=== PATIENT | female | born 1995 | race Caucasian/White ===

== ENCOUNTER 2023-03-14 12:54 | Emergency (ER) | payer OTHER, SELFPAY ==
[2023-03-14] MEDS ORDERED: Metoclopramide HCl 10 MG/2 ML VIAL ONE (15:57)
[2023-03-14 16:06] LABS: BHCG - Serum POSITIVE (NEGATIVE)
[2023-03-14 16:07] LABS: Pregs Control Background? CLEAR/WHITE (CLR/WHITE); Pregs Control Bar Appear? YES (CONTROL BAR)
[2023-03-14 16:10] LABS: #Eosinphils 0.1 10x3/uL (0.0-0.5); #Monocytes 0.3 10x3/uL (0.0-1.1); #Neutrophils 7.8 10x3/uL (1.5-8.4); %Basophils 0.3 % (0.0-2.0); %Eosinophils 0.6 % (0.0-6.0); %Lymphocytes 19.5 % (18.0-47.0); %Monocytes 3.1 % (0.0-10.0); %Neutrophils 76.2 % (40.0-75.0); Hematocrit 37.8 % (34.9-44.5); Hemoglobin 13.5 g/dL (12.0-15.5); Mean Corpuscular HGB CONC 35.7 g/dL (32.0-36.0); Mean Corpuscular Hemoglobin 30.6 pg (27.0-33.0); Mean Corpuscular Volume 85.7 fl (81.6-98.3); Mean Platelet Volume 9.5 fl (7.4-10.4); Platelet Count 172 10x3/uL (150-450); RBC Distribution Width 11.9 % (11.5-14.5); Red Blood Cell (RBC) Count 4.41 10x6/uL (3.90-5.03); White Blood Cell (WBC) Count 10.2 10x3/uL (3.5-10.5)
[2023-03-14 16:18] LABS: ALT (SGPT) 17 U/L (8-55); AST (SGOT) 15 U/L (5-34); Albumin 4.4 g/dL (3.5-5.0); Alkaline Phosphatase 46 U/L (40-110); Anion Gap 14 mmol/L (10-20); BUN (Urea Nitrogen) 8 mg/dL (7.0-18.7); Bilirubin, Total 0.6 mg/dL (0.2-1.2); Calc. Creatinine Clearance 0 mL/min (70-130); Carbon Dioxide 20 mmol/L (22-29); Chloride 103 mmol/L (98-107); Estimated GFR 124; Glucose 131 mg/dL (70-105); Potassium 3.4 mmol/L (3.5-5.1); Protein, Total 7.4 g/dL (6.0-8.3); Sodium 134 mmol/L (136-145)
[2023-03-14] MEDS ORDERED: diphenhydrAMINE 50 MG/ML VIAL ONE (16:28)
== END 2023-03-14 16:57 | disposition home or self-care (01) ==
LOC: CSHERS 12:54
DX: R11.2 Nausea with vomiting, unspecified (principal)
CPT/HCPCS: 36415; 80053; 84703; 85025; 96361; 96374; 96375; J1200; J2765

== ENCOUNTER 2023-10-06 03:06 | Day surgery (SDC) | payer OTHER ==
[2023-10-06 03:29] VITALS: BMI 30.2
[2023-10-06] MEDS ORDERED: hydrALAZINE 20 MG/ML VIAL SLOW IVP PRN (03:45)
[2023-10-06] MEDS ORDERED: Lactated Ringer's 1,000 ML IV SCH (04:00)
[2023-10-06] MEDS: Acetaminophen 500 MG TAB PO PRN (06:19)
[2023-10-06 07:46] LABS: Bilirubin Neg (Negative); Blood, Urine Negative (Negative); Clarity Clear (Clear); Glucose, Urine (Dipstick) Normal (Negative); Ketone, Urine Negative (Negative); Leukocyte Negative (Negative); Nitrite Negative (Negative); Protein, Urine (Dipstick) 15 mg/dl (Neg-Trace)
[2023-10-06 08:06] LABS: Bacteria/HPF Rare-Few HPF (None Seen); CAUTI Indications for Culture Pregnancy; RBC/HPF 0-3 HPF (0-3)
[2023-10-06 08:07] LABS: Urine Culture Reflex Yes Yes
== END 2023-10-06 08:05 | disposition home or self-care (01) ==
LOC: CSHLD/OP 03:06
PROVIDERS: ATTEND Family Medicine
DX: O36.8130 Decreased fetal movements, third trimester, not applicable or unspecified (principal); O47.1 False labor at or after 37 completed weeks of gestation; O34.211 Maternal care for low transverse scar from previous cesarean delivery; O09.43 Supervision of pregnancy with grand multiparity, third trimester; Z79.899 Other long term (current) drug therapy; Z3A.38 38 weeks gestation of pregnancy
CPT/HCPCS: 76819; 81001; 87086; 96360; 99283